=== PATIENT | male | born 1975 | race Caucasian/White ===

== ENCOUNTER 2022-06-05 08:14 | Emergency (ER) | payer OTHER, SELFPAY ==
[2022-06-05 08:21] VITALS: BP 118/73; PULSE 70; RESP 18; TEMP 36.8; O2SAT 100
--- NOTE | 2022-06-05 08:53 | ED.GENADULT ---
HPI - General Adult General Chief complaint: Upper Respiratory Infection Stated complaint: Ear Pain Source: patient Mode of arrival: ambulatory Limitations: no limitations History of Present Illness HPI narrative: Presents for evaluation of left-sided ear pain since yesterday. He indicates he had a cold earlier this week. Symptoms at that time included sinus congestion. He now has some rhinorrhea. He denies any fever, chills, nausea, vomiting, sore throat, cough or SOB. He used some leftover otic abx of his daughter from about three years ago. He cannot say whether it made a considerable difference in his symptoms. He had COVID in August of this year. He has received his COVID vaccinations and his booster. Related Data Allergies Allergy/AdvReac Type Severity Reaction Status Date / Time No Known Allergies Allergy Verified 06/05/22 08:28 Review of Systems Review of Systems: CONSTITUTIONAL: Denies fever, chills, or sweats. EYES: Denies visual changes, redness, or discharge. ENT: Reports left sided ear pain. Denies rhinorrhea, congestion, sore throat. CARDIOVASCULAR: Denies chest pain, palpitations, or edema. RESPIRATORY: Denies cough or dyspnea. GASTROINTESTINAL: Denies abdominal pain, nausea, vomiting, or diarrhea. GENITOURINARY: Denies dysuria or hematuria. SKIN: Denies rash or itching. MUSCULOSKELETAL: Denies back pain, joint pain, or myalgia. NEUROLOGIC: Denies headache, numbness, dizziness, or weakness. PSYCHIATRIC: Denies anxiety or depression. [facility] Past Medical History Medical History No pertinent past medical history Surgical History Surgical History No pertinent past surgical history Family History Family History Mother Family history non-contributory Social History Social History (Updated 06/05/22 @ 09:06 by GERALD Salcedo, ) Alcohol intake: never Substance use: never Gender identity (if verbalized by the patient): Male Sexual Orientation (if Verbalized by the Patient): Straight or Heterosexual Spiritual care concerns: No Exam Narrative: GENERAL: Well-appearing, well-nourished, and in no acute distress. HEAD: Normocephalic, atraumatic. EYES: PERRLA and EOMI. ENT: Nares clear, no rhinorrhea or epistaxis. Mucous membranes moist. Oropharynx without tonsillar hypertrophy exudate or other lesions. Left ear canal is edematous. There is erythema to left TM with middle ear fluid and bulging present. There is some white exudate in left ear canal. NECK: Supple. No adenopathy or masses. No carotid bruits or JVD CHEST: Clear to auscultation. No respiratory distress. No wheezes rales or rhonchi HEART: Regular rate and rhythm. No murmur heard. Normal peripheral pulses. ABDOMEN: Soft, nontender, nondistended, normal active bowel sounds. EXTREMITIES: Normal range of motion. No edema. SKIN: Warm, dry, no rash. NEURO: No focal deficits. Alert and oriented x3. PSYCH: Normal mood and affect. Course Course Emergency Course: This is a 47-year-old male who presented for evaluation of left-sided ear pain. He has evidence of otitis media on exam. We will treat with Augmentin. He is requesting otic abx as those he has at home are . He does have some edema of left ear canal with some white exudate present. Will provide prescription for ofloxacin. Follow-up outpatient for further evaluation and treatment and return for worsening symptoms. Patient in agreement with plan of care. Level of Care: Express Care Visit Vital Signs Vital signs: Vital Signs Temperature 36.8 C 06/05/22 08:21 Pulse Rate 70 06/05/22 08:21 Respiratory Rate 18 06/05/22 08:21 Blood Pressure 118/73 06/05/22 08:21 Pulse Oximetry 100 06/05/22 08:21 Oxygen Delivery Room Air 06/05/22 08:21 Temperature 36.8 C
== END 2022-06-05 08:40 | disposition home or self-care (01) ==
PROVIDERS: Emergency Provider Nurse Practitioner
DX: H66.92 Otitis media, unspecified, left ear (principal); Z86.16 Personal history of COVID-19
CPT/HCPCS: 99213; G0463